=== PATIENT | female | born 1950 | race African-American/Black ===

== ENCOUNTER 2022-09-03 16:18 | Emergency (ER) | payer OTHER ==
[~2022-09-03] VITALS: Ht 162.6 cm; Wt 77.1 kg
[2022-09-03 16:45] VITALS: BP 144/95
--- NOTE | 2022-09-03 16:50 | NUR ---
ESTABLISHED IV LINE RIGHT AC 20 G
--- NOTE | 2022-09-03 16:50 | NUR ---
BIB [facility] FROM HOME,C/O WEAKNESS AND NAUSEA
[2022-09-03] MEDS: IV NS 0.9% 1,000 ML BAG IV ONE (17:53)
[2022-09-03 17:57] LABS: BASOPHILS % (AUTO) 0.3 % (0.0-2.0); HEMATOCRIT 41 % (33-45); LYMPHOCYTES # (AUTO) 0.7 K/uL (0.8-4.8); LYMPHOCYTES % (AUTO) 12.9 % (20.0-44.0); MEAN CORPUSCULAR HGB CONC 32 g/dl (31.0-36.0); MEAN CORPUSCULAR VOLUME 100 fL (82-100); MONOCYTES # (AUTO) 0.1 K/uL (0.1-1.30); MONOCYTES % (AUTO) 2.3 % (2.0-12.0); NEUTROPHILS # (AUTO) 4.7 K/uL (1.8-8.9); NEUTROPHILS % (AUTO) 84.5 % (43.0-81.0); PLATELET COUNT (AUTO) 291 K/uL (150-450); RED BLOOD CELL COUNT(AUTO) 4.07 MIL/uL (4.0-5.2); WHITE BLOOD COUNT (AUTO) 5.5 K/uL (4.3-11.0)
[2022-09-03 18:19] LABS: CARBON DIOXIDE 30 mmol/L (21-32); CHLORIDE 97 mmol/L (98-107); CREATININE 0.9 mg/dL (0.6-1.3); GLUCOSE 111 mg/dL (74-106); SODIUM SERUM 134 mmol/L (136-145); UREA NITROGEN, BLOOD 12 mg/dL (7-18)
[2022-09-03 18:31] LABS: ALANINE AMINOTRANSFERASE 15 U/L (12-78); ALBUMIN 3.2 g/dL (3.4-5.0); ALKALINE PHOSPHATASE 136 U/L (46-116); ASPARTATE AMINOTRANSFERASE 25 U/L (15-37); BILIRUBIN,DIRECT 0.4 mg/dL (0.0-0.2); TOTAL PROTEIN, SERUM 8.1 g/dL (6.4-8.2)
--- NOTE | 2022-09-03 20:27 | NUR ---
COVID ANTIGEN SWAB COLLECTED AND SENT TO LAB
--- NOTE | 2022-09-03 20:34 | NUR ---
URINE COLLECTED AND SENT TO LAB
--- NOTE | 2022-09-03 20:34 | NUR ---
ADLS DONE; PT KEPT CLEAN AND DRY. LARGE INCONTINENT URINE NOTED.
[2022-09-03 20:53] LABS: BILIRUBIN,URINE NEGATIVE (NEGATIVE); COLOR,URINE YELLOW (YELLOW); LEUKOCYTE ESTERASE ,URINE 3+ (NEGATIVE); NITRITE, URINE POSITIVE (NEGATIVE); PROTEIN,URINE NEGATIVE (NEGATIVE); UGLUCOSE NEGATIVE (NEGATIVE)
[2022-09-03 20:54] LABS: BACTERIA,URINE Few /HPF (None Seen); SQUAMOUS EPITHELIAL CELL,UR Few /HPF (None Seen); WBC,URINE 21-50 /HPF (0-3)
--- NOTE | 2022-09-03 22:08 | NUR ---
S/W [facility] FROM [facility] ACCEPTED TO [place], [facility] ETA 2300 REPORT TO [phone]
[2022-09-03] MEDS ORDERED: CEFTRIAXONE 1 G VIAL ONE (23:01)
[2022-09-03] MEDS ORDERED: LIDOCAINE /MPF 1% VIAL 5 ML VIAL ONE (23:02)
[2022-09-03] MEDS: CEFTRIAXONE 1 G in IV D5W 50 ML IV ONE (23:07)
--- NOTE | 2022-09-03 23:08 | NUR ---
REPORT GIVEN TO THAO AT [facility]
--- NOTE | 2022-09-03 23:19 | NUR ---
PT WAS PICKED UP BY AMBULANCE AND TRANSFERRED TO [facility] UNDER ACLS
== END 2022-09-04 00:31 | disposition short-term general hospital (02) ==
LOC: ER 16:18
DX: R53.1 Weakness (principal); N39.0 Urinary tract infection, site not specified; R55 Syncope and collapse; R09.02 Hypoxemia; I50.9 Heart failure, unspecified; R03.0 Elevated blood-pressure reading, without diagnosis of hypertension; I49.8 Other specified cardiac arrhythmias; Z20.822 Contact with and (suspected) exposure to COVID-19
CPT/HCPCS: 99285; 96360; 71045; 87426; 93005; 85025; 80048; 87086; 80076; 81001; 36415; 84484; 83880; 96372; 87081; J0696; J7030; J3490; C9803; J7060